=== PATIENT | female | born 1945 | race Two or more races ===

== ENCOUNTER → 2017-07-11 | Outpatient (CLI) | payer OTHER ==
[~2017-07-11] MED LIST: ASPI81TA82 PO; LEVO50TA4 PO; METO25 PO; PRIL20CA PO; TAB-TAB PO
--- NOTE | 2017-07-25 10:08 | RSPPFT ---
DATE OF PROCEDURE: 07/11/17 COMMENTS: Spirometry shows FVC of 2.4 at 95% of predicted, FEV1 of 1.7 at 87%, FEV1/FVC ratio is decreased. Flow is decreased at FEF 50, FEF 75 and FEF 25-75. There is no response after bronchodilator treatment. Lung volumes show residual volume is increased. TLC is normal. Diffusion capacity is normal. Flow volume loop indicates terminal airways obstruction. IMPRESSION: 1. Mild small airways obstructive lung disease. 2. No response after bronchodilator treatment. 3. Lung volumes show mild hyperinflation. 4. Diffusion capacity is normal.
== END ==
LOC: PHRSP 08:16
PROVIDERS: ATTEND Specialist
DX: J44.9 Chronic obstructive pulmonary disease, unspecified (principal)
CPT/HCPCS: 94060; 94726; 94729